=== PATIENT | male | born 1970 | race Caucasian/White ===

== ENCOUNTER 2017-04-15 17:21 | Emergency (ER) | payer OTHER ==
[2017-04-15 17:26] VITALS: BP 136/86; PULSE 96; TEMP 97.9; BMI 36.9
--- NOTE | 2017-04-15 17:29 | PDOC ---
Rapid Medical Evaluation Time Seen by Provider: 04/15/17 17:22 Medical Evaluation: 04/15/17 17:23 I have performed a brief in-person evaluation of this patient. The patient presents with a chief complaint of: pain to right knee since 230am. Reports misstep while entering and ambulance. States pain worse with weight bearing Denies numbness in lower limb Pertinent physical exam findings: NAD unlabored breathing right knee with swelling, unable to flex and extend due to pain I have ordered the following: analgesia, xray of right knee The patient will proceed to the ED for further evaluation.
[2017-04-15] MEDS ORDERED: KETOROLAC TROMETHAMINE 60 MG/2 ML VIAL IM ONE (18:00)
[2017-04-15] MEDS ORDERED: KETOROLAC TROMETHAMINE 60 MG/2 ML VIAL ONE (18:03)
--- NOTE | 2017-04-15 18:05 | PDOC ---
History of Present Illness - General Chief Complaint: Injury Stated Complaint: KNEE INJURY Time Seen by Provider: 04/15/17 17:22 History Source: Patient - History of Present Illness Occurred: reports: other (last night) Severity: Yes: severe Lower Extremity Pain Location: right: knee Method of Injury: Yes: other Past History - Past Medical History Allergies/Adverse Reactions: Allergies Allergy/AdvReac Type Severity Reaction Status Date / Time No Known Allergies Allergy Verified 04/15/17 17:26 Home Medications: Ambulatory Orders Ibuprofen [Motrin -] 600 mg PO QID #28 tablet 04/15/17 Tramadol HCl 50 mg PO Q6H #10 tablet MDD 200 mg 04/15/17 COPD: No Other medical history: denies - Suicide/Smoking/Psychosocial Hx Smoking History: Never smoked Information on smoking cessation initiated: No Hx Alcohol Use: No Drug/Substance Use Hx: Yes (occasional) Substance Use Type: None Review of Systems - Review of Systems Musculoskeletal: Yes: Joint Pain. No: Joint Swelling *Physical Exam - Vital Signs Last Vital Signs Temp Pulse Resp BP Pulse Ox 97.9 F 96 H 19 136/86 96 04/15/17 17:23 04/15/17 17:23 04/15/17 17:23 04/15/17 17:23 04/15/17 17:23 - Physical Exam General Appearance: Yes: Appropriately Dressed, Mild Distress HEENT: positive: Normal Voice Respiratory/Chest: negative: Respiratory Distress Extremity: positive: Tender (diffusely, LROM 2/2 pain). negative: Swelling Integumentary: positive: Dry, Warm Neurologic: positive: Fully Oriented, Alert, Normal Mood/Affect Medical Decision Making - Medical Decision Making 04/15/17 18:01 47-year-old male, no significant history here with severe knee pain. 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 Denies any fall. Patient states for the fast past month, he has had stiffness of that right knee. No previous knee injuries or surgeries. See exam Knee pain while ascending vehicle today No fall Diffusely tender on exam but no swelling/deformity M/l sprain -pain control -XR 04/15/17 18:31 X-ray unremarkable. Patient with knee brace in place, given crutches and ortho referral as needed *DC/Admit/Observation/Transfer Diagnosis at time of Disposition: Knee sprain Qualifiers: Encounter type: initial encounter Involved ligament of knee: unspecified ligament Laterality: right Qualified Code(s): S83.91XA - Sprain of unspecified site of right knee, initial encounter - Discharge Dispostion Disposition: HOME Condition at time of disposition: Improved - Prescriptions Prescriptions: Ibuprofen [Motrin -] 600 mg PO QID #28 tablet Tramadol HCl 50 mg PO Q6H #10 tablet MDD 200 mg - Referrals Referrals: STAFF,NOT ON [Primary Care Provider] - Zev Wan MD [Staff Physician] - - Patient Instructions Printed Discharge Instructions: Knee Sprain Additional Instructions: Rest, use crutches for ambulation and take pain medications as directed. If pain persists after 2 weeks, please follow-up with Dr. Wan of orthopedics - Post Discharge Activity Forms/Work/School Notes: Back to Work
[2017-04-15] MEDS ORDERED: traMADol HCL 50 MG TABLET PO ONE (18:33)
[2017-04-15] MEDS ORDERED: traMADol HCL 50 MG TABLET ONE (18:40)
--- NOTE | 2017-04-15 18:40 | PDOC ---
*Physical Exam - Vital Signs Last Vital Signs Temp Pulse Resp BP Pulse Ox 97.9 F 96 H 19 136/86 96 04/15/17 17:23 04/15/17 17:23 04/15/17 17:23 04/15/17 17:23 04/15/17 17:23 ED Treatment Course - Medications Given in the ED: ED Medications Discontinued Medications Generic Name Dose Route Start Last Admin Trade Name Amara PRN Reason Stop Dose Admin Ketorolac Tromethamine 60 mg 04/15/17 18:00 04/15/17 18:13 Toradol Injection - IM 04/15/17 18:01 60 mg ONCE ONE Administration Oxycodone/Acetaminophen 1 combo 04/15/17 17:29 04/15/17 18:13 Percocet 5/325 - PO 04/15/17 17:30 Not Given ONCE ONE *DC/Admit/Observation/Transfer Diagnosis at time of Disposition: Knee sprain Qualifiers: Encounter type: initial encounter Involved ligament of knee: unspecified ligament Laterality: right Qualified Code(s): S83.91XA - Sprain of unspecified site of right knee, initial encounter - Discharge Dispostion Disposition: HOME Condition at time of disposition: Improved - Prescriptions Prescriptions: Ibuprofen [Motrin -] 600 mg PO QID #28 tablet Tramadol HCl 50 mg PO Q6H #10 tablet MDD 200 mg - Referrals Referrals: Zev Wan MD [Staff Physician] - STAFF,NOT ON [Primary Care Provider] - - Patient Instructions Printed Discharge Instructions: Knee Sprain Additional Instructions: Rest, use crutches for ambulation and take pain medications as directed. If pain persists after 2 weeks, please follow-up with Dr. Wan of orthopedics - Post Discharge Activity Forms/Work/School Notes: Back to Work
== END 2017-04-15 18:43 | disposition home or self-care (01) ==
LOC: JERFT 17:21
PROC: 2W3RX1Z Immobilization of Left Lower Leg using Splint (ICD-10-PCS; principal; 2017-04-15)
PROC: 3E0233Z Introduction of Anti-inflammatory into Muscle, Percutaneous Approach (ICD-10-PCS; 2017-04-15)
DX: S83.91XA Sprain of unspecified site of right knee, initial encounter (principal); X58.XXXA Exposure to other specified factors, initial encounter; Y93.89 Activity, other specified; Y92.89 Other specified places as the place of occurrence of the external cause; Y99.0 Civilian activity done for income or pay
CPT/HCPCS: 73562-TC-RT; 99281-25